=== PATIENT | male | born 1950 | race Caucasian/White ===

== ENCOUNTER 2018-05-17 08:37 | Inpatient (IN) | payer OTHER, MEDICARE, SELFPAY ==
[2018-05-10 14:00] VITALS: BMI 34.2
[2018-05-17] VITALS (16 sets, daily range): BP systolic 83–149; BP diastolic 32–79; PULSE 54–77; RESP 15–21; TEMP 35.9–37.1; O2SAT 94–100; BMI 33.5
--- NOTE | 2018-05-17 06:00 | DI.RAD.S_ITS ---
PROCEDURE: XR PELVIS 1-2V INDICATIONS: post op right hip TECHNIQUE: One view(s) of the pelvis acquired. COMPARISON: [facility] [place], [place], XR PELVIS WITH LATERAL HIP RIGHT, 05/11/2018, 15:46. FINDINGS: Bones: No fractures or dislocations. No suspicious bony lesions. Expected postoperative alignment of right hip arthroplasty. Hardware appears intact. Mild left hip degeneration. Soft tissues: Overlying soft tissue postoperative changes. IMPRESSION: Expected postoperative alignment right hip arthroplasty. Dictated by: Clement Lehman M.D. on 05/17/2018 at 14:49 Approved by: Clement Lehman M.D. on 05/17/2018 at 14:50
[2018-05-17] MEDS: CELECOXIB 200 MG CAPSULE PO (09:08)
[2018-05-17] MEDS: ACETAMINOPHEN 325 MG TABLET 975 MG PO (09:08)
[2018-05-17] MEDS: LACTATED RINGERS 1,000 ML 42 ML IV ×3 (09:09→13:52)
--- NOTE | 2018-05-17 09:33 | SUR.PREOP ---
patient's home meds given to his with his permission.
--- NOTE | 2018-05-17 10:10 | PM.PREOP ---
Pre-operative Note Interval Note History & Physical reviewed/Exam performed by Physician: Yes Changes to H&P: No
[2018-05-17] MEDS: CEFAZOLIN 2 GM/100 ML FROZ.PIGGY IV ×2 (10:57→19:42)
[2018-05-17] MEDS: BUPIVACAINE 0.25% W/ EPI 50 ML VIAL INJ (11:31)
--- NOTE | 2018-05-17 11:35 | SUR.OPER ---
Lateral on padded OR bed. Gel axillary roll. Arms secured on padded armboard with pillow supporting top arm. Padded hip positioner braces x4 - anterior and posterior chest and pelvis. Additional gel pad used anterior pelvis. Gel pad under bottom leg from knee to foot and secured with tape over sheet.
[2018-05-17] MEDS: TRANEXAMIC ACID 1,000 MG VIAL 1000 MG INJ (12:12)
--- NOTE | 2018-05-17 12:32 | PM.OP.1 ---
Operative Date/Time/Diagnoses Date of procedure: 05/17/18 Time of procedure: 12:33 Pre-op diagnosis: Right hip degenerative joint disease Post-op diagnosis: same Procedure & Clinicians Procedure: Right total hip arthroplasty (CPT code 17470 with fast food sales assistant) Same procedure as scheduled: Yes Indications: Patient is an 68-year-old male with severe right hip DJD. The patient has pain with activities and at rest, limited ambulation and activity tolerance, difficulties with ADLs, and failure of conservative treatment. We have discussed the nature of condition, treatment options, risks and benefits, and patient elects to proceed with total hip arthroplasty and gives informed consent. Surgeon: Nilson Espinoza Supervisor Properties: Kevin Rooney Anesthesia Type: Spinal Operative Notes Closure Type: primary Specimen(s): none sent Prosthetic devices, grafts, tissues, transplants, or devices: Acetabulum: Ellison and Nephew R3 acetabular component size 54 mm Femoral component: Ellison and Nephew Anthology stem size 7 with standard offset Femoral head: 36 mm + 4 Oxinium Estimated Blood Loss (mL): 100 Blood products transfused: none Procedure in detail: After satisfaction induction of anesthetic, and administration of IV antibiotics, the patient was positioned in the lateral decubitus position with all bony prominences well padded and pelvic position secured using a hip .net programmer positioning device. Right hip and lower extremity prepped and draped in the usual sterile fashion, 1st dose of intravenous tranexamic acid was administered, then a longitudinal incision was created centered over the greater trochanter and carried sharply through the skin and subcutaneous tissues down to the fascia lucian which was divided longitudinally and retracted with a Charnley retractor. External rotators visualize, cut, tagged, and retracted posteriorly, then the capsule was cut in a T-type fashion with the corners tagged and retracted. Hip was dislocated and femoral neck cut made according to preoperative templating. Acetabular retractors then placed, and the acetabular labrum and osteophytes were excised. The acetabulum was then sequentially reamed to 53 mm with an excellent circumferential ream and fit with the trial. The trial component was removed and a permanent size 54 mm Ellison and Nephew R3 acetabular component was selected, positioned, and impacted with satisfactory position and fixation achieved. Permanent liner was then inserted with the elevated lip directed posteriorly. Soft tissue then removed off the lateral femoral neck in the lateral neck was entered using a box osteotome. T-handled reamers placed down the canal followed by sequential broaching to 7 with the final broach left in place for trial reduction which demonstrated excellent leg length, range of motion, and stability characteristics with a 36 mm +4 trial ball. The trial and broach were removed, and a permanent size 7 Ellison and Nephew Anthology stem was selected and inserted with excellent position and fixation achieved. Another trial reduction yielded the above characteristics so the trial ball was exchanged for a permanent 36 mm + 4 Oxinium ball. The hip was irrigated and reduced and excellent leg length range of motion and stability characteristics were achieved and maintained. Periarticular tissues were infiltrated with Marcaine. The hip was copiously irrigated, and the capsule repaired with #2 Ethibond, and the piriformis was repaired back to the greater trochanter with the same. Fascia lucian closed with interrupted #1 Ethibond sutures, and the subcutaneous tissues were closed in 2 layers of 0 Vicryl and 2 0 Vicryl. Skin was closed with dale and sterile dressings applied. Second dose of tranexamic acid was administered intravenously, and the anesthetic was terminated. Complications: none Condition: stable Disposition: PACU Plan for aftercare: Patient will be admitted to the acute care allison, and anticipate discharge on postop day 1 to 2 with follow-up in office in 10-14 days. Outpatient physical therapy will be arranged and patient will continue to observe posterior hip precautions. Patient will continue use of postoperative Lovenox for 10 days postop.
--- NOTE | 2018-05-17 12:36 | P.OP_ITS ---
Operative Date/Time/Diagnoses Date of procedure: 05/17/18 Time of procedure: 12:33 Pre-op diagnosis: Right hip degenerative joint disease Post-op diagnosis: same Procedure & Clinicians Procedure: Right total hip arthroplasty (CPT code 37519 with assistant public defender) Same procedure as scheduled: Yes Indications: Patient is an 68-year-old male with severe right hip DJD. The patient has pain with activities and at rest, limited ambulation and activity tolerance, difficulties with ADLs, and failure of conservative treatment. We have discussed the nature of condition, treatment options, risks and benefits, and patient elects to proceed with total hip arthroplasty and gives informed consent. Surgeon: Nilson Espinoza Cleat Feeder: Kevin Rooney Anesthesia Type: Spinal Operative Notes Closure Type: primary Specimen(s): none sent Prosthetic devices, grafts, tissues, transplants, or devices: Acetabulum: Ellison and Nephew R3 acetabular component size 54 mm Femoral component: Ellison and Nephew Anthology stem size 7 with standard offset Femoral head: 36 mm + 4 Oxinium Estimated Blood Loss (mL): 100 Blood products transfused: none Procedure in detail: After satisfaction induction of anesthetic, and administration of IV antibiotics, the patient was positioned in the lateral decubitus position with all bony prominences well padded and pelvic position secured using a hip graduate teaching assistant positioning device. Right hip and lower extremity prepped and draped in the usual sterile fashion, 1st dose of intravenous tranexamic acid was administered, then a longitudinal incision was created centered over the greater trochanter and carried sharply through the skin and subcutaneous tissues down to the fascia lucian which was divided longitudinally and retracted with a Charnley retractor. External rotators visualize, cut, tagged, and retracted posteriorly, then the capsule was cut in a T-type fashion with the corners tagged and retracted. Hip was dislocated and femoral neck cut made according to preoperative templating. Acetabular retractors then placed, and the acetabular labrum and osteophytes were excised. The acetabulum was then sequentially reamed to 53 mm with an excellent circumferential ream and fit with the trial. The trial component was removed and a permanent size 54 mm Ellison and Nephew R3 acetabular component was selected, positioned, and impacted with satisfactory position and fixation achieved. Permanent liner was then inserted with the elevated lip directed posteriorly. Soft tissue then removed off the lateral femoral neck in the lateral neck was entered using a box osteotome. T- handled reamers placed down the canal followed by sequential broaching to 7 with the final broach left in place for trial reduction which demonstrated excellent leg length, range of motion, and stability characteristics with a 36 mm +4 trial ball. The trial and broach were removed, and a permanent size 7 Ellison and Nephew Anthology stem was selected and inserted with excellent position and fixation achieved. Another trial reduction yielded the above characteristics so the trial ball was exchanged for a permanent 36 mm + 4 Oxinium ball. The hip was irrigated and reduced and excellent leg length range of motion and stability characteristics were achieved and maintained. Periarticular tissues were infiltrated with Marcaine. The hip was copiously irrigated, and the capsule repaired with #2 Ethibond, and the piriformis was repaired back to the greater trochanter with the same. Fascia lucian closed with interrupted #1 Ethibond sutures, and the subcutaneous tissues were closed in 2 layers of 0 Vicryl and 2 0 Vicryl. Skin was closed with dale and sterile dressings applied. Second dose of tranexamic acid was administered intravenously, and the anesthetic was terminated. Complications: none Condition: stable Disposition: PACU Plan for aftercare: Patient will be admitted to the acute care allison, and anticipate discharge on postop day 1 to 2 with follow-up in office in 10-14 days. Outpatient physical therapy will be arranged and patient will continue to observe posterior hip precautions. Patient will continue use of postoperative Lovenox for 10 days postop.
--- NOTE | 2018-05-17 13:04 | SUR.PHASEI ---
Arouses easily to voice, denies pain/nausea; declined PO intake, states that he is warm enough, asking appropriate questions; resp even and regular, skin warm and dry.
--- NOTE | 2018-05-17 13:12 | SUR.PHASEI ---
Only discomfort is a sore throat; ice chips given. Awake, drowsy, oriented.
--- NOTE | 2018-05-17 13:30 | SUR.PHASEI ---
1319 to room 230. present in room. Bed down and locked, call light within reach. Alert and oriented, feeing ice chips to himself. VSS; resp even and regular, skin warm and dry. Dressing remains CDI; SCDs on. Clothing bag given to at her request. No questions from patient, , or staff. NOTE: Pillow was between legs upon arrival from the OR and throughout the PACU stay.
--- NOTE | 2018-05-17 13:49 | PC.NURSE ---
Pt arrived from PACU, VSS, dressing CDI. No pain , no nausea. Oriented to room. at bedside.
[2018-05-17] MEDS: LACTATED RINGERS 1,000 ML 125 ML IV ×2 (14:00→23:43)
[2018-05-17] MEDS: HYDROCODONE/ACET 5/325 TABLET 1 TAB PO (16:34)
--- NOTE | 2018-05-17 17:12 | PT.IPTN ---
Current Diagnoses Unilateral primary osteoarthritis, right hip (05/17/18) Trochanteric bursitis, right hip (05/17/18) Surgery Performed Operation Date: 05/17/18 10:15 Actual Procedures p Total Hip Arthroplasty(Right) - Nilson Espinoza MD Physical Therapy Treatment Note M3 PT-IP Subjective Start: 05/17/18 17:10 Freq: NEEDED Status: Active Protocol: Document 05/17/18 16:10 (Rec: 05/17/18 17:12 [email or web address]) Subjective Physical Therapy Visit Type Type Patient Unavailable Notes Per RN, Pt has not had any active movements from R knee and ankle yet. Pt education on hip precautions is given, Reattempt PT again tomorrow morning Physical Therapy Visit Comments Patient Comments Pt stated I couldnt feel my right leg yet.
--- NOTE | 2018-05-17 18:45 | PC.NURSE ---
Addendum entered by Katy Dickey R.N. 05/17/18 22:49: 2100- pt walked to bathroom with 1PA and FWW. did very well. able to feel all parts of legs. able to lift leg. needs assistance with getting leg back in bed. has had ice off the majority of the shift. did put it back on around 10 pm. will continue to monitor. Original Note: 1500- assumed care of pt from outgoing shift at 1500 this day. pt asleep at this time. arouses to voice. in and out, ran to get coffee. bed alarm on. will continue to monitor 1600- pt awake. in room. compliant with nursing staff and assessments. numbness to right knee and below. able to wiggle toes on right side. unable to lift leg at this time. unable to wiggle leg at this time. Pt asked for pain med. given pr APR. Pt denies nausea. will continue to monitor.
[2018-05-17] MEDS: HYDROMORPHONE 2 MG TABLET PO ×2 (20:33→23:41)
[2018-05-18] MEDS: CEFAZOLIN 2 GM/100 ML FROZ.PIGGY IV (03:00)
[2018-05-18] MEDS: HYDROMORPHONE 2 MG TABLET PO ×3 (03:00→08:59)
[2018-05-18 03:05] VITALS: PULSE 70; RESP 18; TEMP 37.1; O2SAT 96
[2018-05-18 05:53] LABS: Hematocrit 30.4 % (41-53); Hemoglobin 10.4 g/dL (13.5-17.5)
--- NOTE | 2018-05-18 06:15 | PC.NURSE ---
Pt is doing very well. He said he did the PT exercises after they left. His pain is well controlled, rating at the most 4 out of 10, however hes very persistent about taking the PO Dilaudid q3h and not trying a different medication or trying to space it out more. Walks to bathroom well with a SBA and FWW. at bedside, overly attentive, laying in a robe.
--- NOTE | 2018-05-18 07:38 | P.DS_ITS ---
History of Present Illness Date Patient Seen: 05/18/18 Time Patient Seen: 07:35 Chief complaint: [id number] Right Total Hip Arthroplasty Narrative: Hospital day 2, postop day 1 following right posterior total hip arthroplasty by Dr. Espinoza. Patient has remained stable postoperatively. He states he was up to 3 times during the night ambulating to the bathroom. This progressed with physical therapy. Pain controlled well. Patient is desiring to go home today. He has a [facility] patient. He has postoperative pain medication at home. He is scheduled to go to [facility] and [place]. Discharge Providers Date of admission: 05/17/18 08:37 Discharge Date: 05/18/18 Primary care physician: David Rodriguez MD Consults: 05/17/18 13:57 Consult to Discharge Planning Routine Comment: Consult to Physical Therapy Evaluate & Treat Comment: Physician Instructions: post op MARCELL protocol Consult to Respiratory Therapy Evaluate & Treat Comment: Physician Instructions: Evaluate and treat Discharge provider: Jani Rodríguez PA-C Summary Discharge Diagnosis: Status post right posterior total hip arthroplasty Hospital Course: Patient brought to hospital on 05/17/2018 for above-noted surgery. He remained stable postoperatively. Progressed well with PT. Ready for discharge home on postop day 1. Status at Discharge Cognitive/behavioral status at discharge: oriented Functional status at discharge: uses cane/walker Overall status at discharge: patient is progressing back to baseline Time Spent with Patient Less than 30 minutes Exam Vital Signs (past 8 hours): - 05/17/18 23:45 05/18/18 03:05 Temperature 98.8 F 98.7 F Pulse Rate 77 70 Respiratory Rate 16 18 Blood Pressure 149/79 H Pulse Oximetry 96 96 Oxygen Delivery Method Room Air Oxygen Flow Rate 0 Narrative Exam Narrative: Alert, oriented no acute distress resting in bed. Legs. Dressing to the right posterior hip is dry without drainage or inflammation. No calf pain or swelling. Pulses symmetrical. Patient able to lift his right leg. Objective Labs Result Diagrams: 05/18/18 05:00 Labs: Laboratory Results - last 24 hr 05/18/18 05:00 Hgb 10.4 L Hct 30.4 L Discharge Plan Discharge Plan Patient Disposition: Home Discharge comment: Discharged home after cleared by PT. Patient is thus with palpation and has postoperative pain medication at home. Posterior Hip precautions times 6 weeks postop. He will be on Lovenox for 10 days postop. Discharge Med Rec/Prescriptions Prescriptions: New enoxaparin [Lovenox] 40 mg/0.4 mL Syringe 40 mg subcut DAILY Qty: 9 RF: 0 Continued simvastatin 20 mg Tablet 20 mg PO QAM RF: 0 ibuprofen [Advil] 200 mg Tablet 400 mg PO DAILY PRN (Reason: pain) RF: 0 lisinopril-hydrochlorothiazide 20-25 mg Tablet 1 tab PO DAILY RF: 0 meloxicam 15 mg Tablet 15 mg PO DAILY RF: 0 aspirin [Aspir-81] 81 mg Tablet,Delayed Release (Dr/Ec) 81 mg PO DAILY RF: 0 oxycodone 5 mg Capsule 5 mg PO Q4-6H PRN (Reason: pain) RF: 0 docusate sodium 100 mg Capsule 100 mg PO BID RF: 0 Follow up/Referrals: David Rodriguez MD [Primary Care Provider] - Provider Discharge Instructions Diet: Diet as Tolerated Activity: Ambulate as tolerated. Use walker as needed. Posterior total hip precautions x6 weeks postop. Cold/Heat Therapy: Cold pack to right hip area as needed. Skin/Wound/Dressing Care Report to your healthcare provider any signs of infection, such as:: chills, fever, night sweats, increased pain, unusual drainage and unusual redness Dressing: Keep CovRsite dressing in place until postop visit. Visit Report/Discharge Packet Instructions: DI for Hip Replacement Discharge Data Primary Care Provider: David Rodriguez V Attending Provider: Nilson Espinoza Admit Date/Time: 05/17/18 08:37 Quality VTE Deep Vein Thrombosis/Pulmonary Embolism Present on Admission: No
[2018-05-18 07:48] VITALS: BP 126/72; PULSE 70; RESP 16; TEMP 36.2; O2SAT 97
[2018-05-18] MEDS: ENOXAPARIN 40 MG/0.4 ML SYRINGE SUBCUT (08:59)
--- NOTE | 2018-05-18 09:51 | PT.IIE ---
Current Diagnoses Unilateral primary osteoarthritis, right hip (05/17/18) Trochanteric bursitis, right hip (05/17/18) Surgery Performed Operation Date: 05/17/18 10:15 Actual Procedures p Total Hip Arthroplasty(Right) - Nilson Espinoza MD Surgical History (Last Updated 05/10/18 @ 14:17 by Britney Giles, RN) History of vasectomy (Acute) Hx of umbilical hernia repair (Acute) Medical History (Last Updated 05/10/18 @ 14:19 by Britney Giles RN) BCC (basal cell carcinoma) (Acute) Chronic neck and back pain (Acute) Easy bruisability (Acute) Edema (Acute) HTN (hypertension) (Acute) Hearing impaired (Acute) Hyperlipidemia (Acute) Osteoarthritis (Acute) Pneumonia (Acute) Psoriasis (Acute) Shingles (Acute ~01/2018) Physical Therapy Inpatient Evaluation/Re-Eval M1 PT/OT-IP Prior Functional Status Start: 05/17/18 17:10 Freq: NEEDED Status: Active Protocol: Document 05/18/18 09:51 DLM (Rec: 05/18/18 10:09 DLM [email or web address]) Medical Review Prior Functional Status Medical History Reviewed Yes Diet/Fluid Consistency Regular Communication WNL Mobility and Gait Independent without device, community distances Activities of Daily Living and IADL's Independent Social History Household Members spouse Living Arrangements House Number of Floors (Floors) One Floor Number of Stairs To Enter/Railing? one step into home Home Environment Standard Height Toilet Tub/Shower Home Equipment Four Wheel Walker Quad Cane Raised Toilet Seat Without Armrests M2 PT-IP Current Condition Start: 05/17/18 17:10 Freq: NEEDED Status: Active Protocol: Document 05/18/18 09:51 DLM (Rec: 05/18/18 10:09 DLM [email or web address]) Physical Therapy Current Condition Current Condition Evaluation Date 05/18/18 Treatment Diagnosis right MARCELL, posterior approach, impaired gait Onset Date 05/17/18 Precautions Posterior Hip Precautions No Hip Flexion > 90 degrees No Hip Internal Rotation No Hip Adduction Weight Bearing Status Weight Bearing Status Weight Bear as Tolerated M3 PT-IP Subjective Start: 05/17/18 17:10 Freq: NEEDED Status: Active Protocol: Document 05/18/18 09:51 DLM (Rec: 05/18/18 10:09 DLM [email or web address]) Subjective Physical Therapy Visit Type Type Initial Evaluation Visit Start Time 08:50 Visit Stop Time 09:51 Total Visit Minutes 61 Number of OUTPATIENT CODER Visits 0 Physical Therapy Visit Comments Patient Comments He did not sleep well last night Patient Goals Discharge home tonight Therapy Pain Assessment Pain When Pain Assessed During Mobility Pain Present Pain Present Pain Reported Location Right Hip Intensity 3 Scale Used Numeric (1 - 10) Description Aching Pain Management Techniques Apply Cold Timing of Activity with Medications M4 PT-IP Mobility and Gait Start: 05/17/18 17:10 Freq: NEEDED Status: Active Protocol: Document 05/18/18 09:51 DLM (Rec: 05/18/18 10:09 DLM [email or web address]) PT-Bed Mobility Assessment Supine to Sit Supine to Sit Independent Sit to Supine Sit to Supine Independent Scooting Scooting to Edge of Bed Independent Scooting Up and Down in Bed Independent PT-Transfer Assessment Sit to and From Stand Sit to and from Stand Independent Use of Upper Extremities Equipment Transfer Assistive Device Gait Belt Front Wheeled Walker 4 Wheeled Walker Transfers Transfer Destination Chair Transfer Technique Stand Step Pivot Transfer Ability Level of Assist Standby Assistance Use of Upper Extremities Gait Assessment Gait Gait Assistance Required: Standby Assistance Distance (Feet) 120 Able to Maintain Weight Bearing Status Yes During Gait Assistive Devices Assistive Device Gait Belt Front Wheeled Walker 4 Wheeled Walker Gait Deviations General Gait Pattern Antalgic Factors Limiting Gait Function Factors Limiting Gait Function Decreased Activity Tolerance Decreased Strength Pain Stair Climbing Assessment Evaluation Level of Assist On Stairs Standby Assistance Devices Stair Climbing Assistive Devices Four Wheel Walker Technique/Endurance Stair Climbing Direction Ascend and Descend Stair Climbing Technique Step to Step Number of Steps Climbed 1 Query Text: Stair Climbing Set # Repetitions (reps) 1 Comments Stair Climbing Comments he needs cuing for sequencing PT-Balance Assessment Sitting Balance and Reactions Static Sitting Balance Ability Normal Dynamic Sitting Balance Ability Normal Standing Balance and Reactions Static Standing Balance Ability Good Dynamic Standing Balance Ability Good Device Used FWW M5 PT-IP Objective Assessments Start: 05/17/18 17:10 Freq: NEEDED Status: Active Protocol: Document 05/18/18 09:51 DLM (Rec: 05/18/18 10:09 DLM [email or web address]) Orientation Orientation/Cognition Level of Alertness Alert Orientation Name Age Birthday Month Date Year Day of Week Place Situation Language Function Ability No Deficits Noted Safety Awareness Understands Safety Issues Memory Description No Deficits Noted Gross Range of Motion Upper Extremity ROM Assessment Within Functional Limits Lower Extremity ROM Assessment Right Impaired Impairments post-op precautions for posterior MARCELL Strength Upper Extremity Strength Assessment Within Functional Limits Lower Extremity Strength Assessment Right Impaired Hip hip flexion 2+/5 Knee 4/5 Ankle 4+/5 Coordination Assessment Gross Coordination Gross Coordination WNL Sensation Assessment Sensation Gross Sensation WNL Muscle Tone Muscle Tone WNL Yes M6 PT-IP Treatment Start: 05/17/18 17:10 Freq: NEEDED Status: Active Protocol: Document 05/18/18 09:51 DLM (Rec: 05/18/18 10:09 DLM [email or web address]) Physical Therapy Treatment Exercises Exercises Ankle Pumps Gluteal Sets Quad Sets Heel Slides Supine Hip Abduction Education Education Provided Precautions Weight Bearing Status Post-Op Packet Safety Other Treatments Other Treatment Performed pt demonstrated safe use of his 4WW M7 PT-IP Assessment and Plan Start: 05/17/18 17:10 Freq: NEEDED Status: Active Protocol: Document 05/18/18 09:51 DLM (Rec: 05/18/18 10:09 DLM [email or web address]) PT Summary Assessment and Plan Potential Rehabilitation Potential Excellent Status of Condition at Evaluation Evolving Summary Impairments Pain ROM Strength Balance Transfers Gait Activity Tolerance Assessment Summary Ashutosh reports feeling ready to discharge home today. His is present for Physical Therapy session. He tolerated gait in the chan well. He has a 4WW for home use and is able to demonstrate safe use of it by increased use of breaks. Educated pt in advantages of FWW vs 4WW. Educated pt and his on home equipment issues and home safety. He is able to verbalize his hip precautions. He has out-pt PT set up after discharge. He appears safe to discharge home with his when medically stable. Goals Bed Mobility Goal Independent Transfer Goal Independent Front Wheeled Walker Four Wheeled Walker Gait Goal Independent Front Wheel Walker Four Wheel Walker Gait Distance 150 Other Goals Up and down one step with FWW/ 4WW independent Frequency of Treatment Frequency Of Treatment Twice a Day Treatment Plan Physical Therapy Treatment Plan Bed Mobility Training Transfer Training Gait Training Therapeutic Exercise Post Op Education Discharge Planning Recommendations To Nursing Amount of Assist Needed Standby Assistance Discharge Recommendations PT Discharge Recommendations Home with Assistance Outpatient PT
--- NOTE | 2018-05-18 11:14 | PC.NURSE ---
Removed post operative dressing from right hip. Applied 2 cover site dressings over the wound. Wound is approximated with dale. No redness or warmth noted around the incision site. MARQUITA Salcido.
--- NOTE | 2018-05-18 13:03 | CM.DANOTE ---
Discharge Planning/Care Management DCP: assessment: case received, EMR reviewed and spoke this morning with ortho KIA Rodríguez who noted he had written d/c order and pt would d/c home once cleared by PT. OUPT PT was all set up. Pt is a 68 year old male who admitted to care of Surgeon: Dr. Espinoza: for a planned R MARCELL. PT was ordered but had not yet worked with pt. Payer: [employer] and Medicare A only. Checked in again about 1230 and MARQUITA Chowdhury noted that pt had aleady left forl home. Noted that PT had worked with pt and his /caregiver training and he did d/c to home as per his [facility] plan with no d/c concerns noted by the care team members. CM Discharge Assessment Start: 05/18/18 13:03 Freq: Status: Discharge Protocol: Document 05/18/18 13:03 ITV (Rec: 05/18/18 13:03 ITV [id number]) Discharge Planning Assessment Advance Directives? No History Provided By Patient Family Member Medical Record Prior Living Arrangements House Household Members spouse Review Status In Process Next Review Type Continued Stay Review Pre-Anesthesia Assessment Start: 05/10/18 14:00 Freq: Status: Discharge Protocol: Document 05/10/18 14:00 CAB (Rec: 05/10/18 15:19 CAB [id number]) Pre-Anesthesia Assessment Patient Information Reviewed Via Phone Assessment Assessment Completed With Patient Primary Care Provider David Rodriguez Seen Specialist in Last 12 Months Yes Specialist Seen Orthopedist Primary Language Macedonian Senior Software Developer Required No Height 170.18 cm Weight 99.337 kg Body Mass Index (BMI) 34.2 Hearing Ability Hard of Hearing Use of Hearing Aid Visual Assist Glasses Dentition Type Teeth, Natural Present Teeth, Missing Barriers to Learning None Comment Left hearing aid Hx Anesthesia Reactions No Hx Family Anesthesia Reaction No Hx Malignant Hyperthermia No Hx Blood Transfusions No Anesthesia Review Requested No Quality Facilitator No alcohol intake current alcohol intake frequency 0-2 drinks per day Smoking Status Former smoker Tobacco type cigarettes how long ago did patient quit smoking Quit 10/2001 Substance Use Type does not use Pain Present Pain Reported Musculoskeletal Symptoms Abnormal Gait Back Pain Difficulty Walking Joint Pain Muscle Cramps Neck Pain Numbness Radiating Pain into Limb Tingling History of Falling (Recent or History of No ) Patient is completely paralyzed or No completely immobile Mental Status Oriented to own ability Is patient on oxygen? No Does patient have HUDSON/SOB No Hx Sleep Apnea No Currently Taking a Beta Levi No Can You Climb a Flight of Stairs Without Yes: Maybe SOB Hx Chest Pain No Hx SOB No Hx Syncope or Dizziness No Anti-Coagulant Therapy No Has a Line Palletizer No Cardiac Testing No Hx Pacemaker/ICD No Pacemaker Rep Required? No Cardiac Clearance Received Not Applicable Diet Type At Home Regular dysphagia No Urinary Catheter Present No Hx Urinary Self Catheterization No Diabetes No Hx Drug Resistant Organism No Presence of External or Internal Medical No Devices Have you traveled outside the [facility] in the last 30 days? Marital Status Lives With spouse Prior Living Arrangements House Number of Floors (Floors) One Floor Support System Child/Children Spouse Does the Patient Have Assistance After Yes Surgery Patient Discharge Plan Description Return Home Comment Pt advised overnight length of stay per surgeon's office Feels Safe in Current Environment Yes Been Physically Hurt or Threatened By a No Person in Current Environment Do you have thoughts of harming yourself None or others? Are you currently considering suicide? No Do you have a plan to hurt yourself or No Plan others? Do You Have Any Spiritual Beliefs That No May Affect Your HC Choices? Do You Have Any Cultural Practices That No May Affect Your HC Choices? Spiritual Referral None Comment Tenriism Who Can We Speak to About Patient's Care Family, friends Identifying Code for Release of Patient Declines to issue Information Health Care Proxy/Next of Kin Charmaine () Health Care Proxy Emergency Contact Name Charmaine () Emergency Contact Advance Directives? No: Declines further information PAC Instructions Durable medical equipment Medications to take/avoid Nasal antibiotic No ETOH/petroleum product on skin DOS NPO Post-op transportation Pre-surgical wash Sensory aids Sturdy shoes/comfortable clothes Do not bring valuables and remove jewelry Document 05/17/18 16:50 MARIAELENA (Rec: 05/17/18 17:05 MARIAELENA [id number])
== END 2018-05-18 11:44 | disposition home or self-care (01) | DRG 470 ==
PROVIDERS: Admitting Provider Orthopaedic Surgery; PCP Internal Medicine; Visit Provider Orthopaedic Surgery
PROC: 0SR90JZ Replacement of Right Hip Joint with Synthetic Substitute, Open Approach (ICD-10-PCS; CPT 27130; principal; 2018-05-17 10:15)
DX: M16.11 Unilateral primary osteoarthritis, right hip (principal); I10 Essential (primary) hypertension
CPT/HCPCS: 36415; 72170; 85014; 85018; 97110; 97116; 97162; C1776; J0690; J1100; J1650; J2250; J2405; J2704

== ENCOUNTER → 2021-12-05 08:44 | Outpatient (CLI) | payer MEDICARE, OTHER, SELFPAY ==
[2018-05-17 08:59] VITALS: BMI 33.5
[2021-12-05 10:32] LABS: Hematocrit 35.3 % (41-53); Mean Corpuscular HGB Conc 34.1 % (30-36); Mean Corpuscular Hemoglobin 30.7 PG (26-34); Platelet Count 204 X10^3/uL (150-400); Red Blood Cell Count 3.92 X10^6/uL (4.5-5.9); Red Cell Distribution Width 13.3 % (11.6-14.8); White Blood Cell Count 6.3 X10^3/uL (4.5-11.0)
[2021-12-05 10:43] LABS: Erythrocyte Sedimentation Rate 10 MM/HR (0-15)
[2021-12-05 11:06] LABS: Alanine Aminotransferase 41 IU/L (<50); Albumin 4.2 g/dL (3.5-5.0); Albumin Globulin Ratio 1.4 (1.0-2.8); Alkaline Phosphatase 57 U/L (38-126); Aspartate Aminotransferase 39 IU/L (17-59); Bilirubin Total 0.5 mg/dL (0.2-1.3); Blood Urea Nitrogen 24 mg/dL (9-20); C-Reactive Protein Quant 1.4 mg/dL (<1.0); Calcium 9.6 mg/dL (8.4-10.2); Carbon Dioxide 26 mmol/L (22-32); Chloride 101 mmol/L (98-107); Cholesterol 192 mg/dL (140-199); Estimated Glomerular Filt Rate > 60 mL/min (>60); Globulin 2.9 g/dL (1.7-4.1); Glucose 97 mg/dL (80-110); HDL Cholesterol 39 mg/dL (40-60); HEMOLYSIS < 15 (0-50); LDL Cholesterol Calculated 116 mg/dL (<100); Potassium 4.2 mmol/L (3.4-5.1); Sodium 138 mmol/L (137-145); Total Protein 7.1 g/dL (6.3-8.2); Triglycerides 184 mg/dL (35-150)
[2021-12-05 11:27] LABS: Prostate Specific Antigen 1.06 ng/mL (0.10-4.00)
[2021-12-05 11:28] LABS: TSH w/ Reflex to FT4 3.48 uIU/mL (0.47-4.68)
== END ==
PROVIDERS: PCP Internal Medicine; Referring Provider Internal Medicine; Visit Provider Internal Medicine
DX: E78.2 Mixed hyperlipidemia (principal); N40.0 Benign prostatic hyperplasia without lower urinary tract symptoms; I10 Essential (primary) hypertension; I25.10 Atherosclerotic heart disease of native coronary artery without angina pectoris
CPT/HCPCS: 36415; 80053; 80061; 84153; 84443; 85027; 85651; 86140

== ENCOUNTER → 2022-05-30 12:13 | Outpatient (CLI) | payer MEDICARE, OTHER, SELFPAY ==
[2018-05-17 08:59] VITALS: BMI 33.5
[2022-05-30 13:24] LABS: Aspartate Aminotransferase 42 IU/L (17-59); BUN Creatinine Ratio 23.9 (6-22); Blood Urea Nitrogen 28 mg/dL (9-20); Calcium 9.6 mg/dL (8.4-10.2); Carbon Dioxide 28 mmol/L (22-32); Chloride 104 mmol/L (98-107); Cholesterol 186 mg/dL (140-199); Estimated Glomerular Filt Rate > 60 mL/min (>60); Glucose 91 mg/dL (80-110); HDL Cholesterol 46 mg/dL (40-60); HEMOLYSIS < 15 (0-50); LDL Cholesterol Calculated 114 mg/dL (<100); Potassium 4.3 mmol/L (3.4-5.1); Sodium 138 mmol/L (137-145); Triglycerides 131 mg/dL (35-150)
== END ==
PROVIDERS: PCP Internal Medicine; Referring Provider Internal Medicine; Visit Provider Internal Medicine
DX: E78.2 Mixed hyperlipidemia (principal); I10 Essential (primary) hypertension; I25.10 Atherosclerotic heart disease of native coronary artery without angina pectoris
CPT/HCPCS: 36415; 80048; 80061; 84450

== ENCOUNTER → 2023-07-13 16:37 | Outpatient (CLI) | payer MEDICARE, OTHER, SELFPAY ==
[2023-05-15 13:04] VITALS: BMI 33.5
[2023-07-13 17:27] LABS: Hematocrit 37.1 % (41-53); Hemoglobin 12.5 g/dL (13.5-17.5); Mean Corpuscular HGB Conc 33.7 % (30-36); Mean Corpuscular Hemoglobin 30.9 PG (26-34); Mean Corpuscular Volume 91.9 fL (80-100); Platelet Count 209 X10^3/uL (150-400); Red Blood Cell Count 4.04 X10^6/uL (4.5-5.9); Red Cell Distribution Width 13.7 % (11.6-14.8); White Blood Cell Count 7.3 X10^3/uL (4.5-11.0)
[2023-07-13 17:41] LABS: Aspartate Aminotransferase 47 IU/L (17-59); BUN Creatinine Ratio 19.7 (6-22); Blood Urea Nitrogen 28 mg/dL (9-20); Calcium 9.9 mg/dL (8.4-10.2); Carbon Dioxide 30 mmol/L (22-32); Chloride 105 mmol/L (98-107); Cholesterol 151 mg/dL (140-199); Estimated Glomerular Filt Rate 52 mL/min (>60); Glucose 83 mg/dL (80-110); HDL Cholesterol 62 mg/dL (40-60); HEMOLYSIS < 15 (0-50); LDL Cholesterol Calculated 71 mg/dL (<100); Potassium 4.3 mmol/L (3.4-5.1); Sodium 140 mmol/L (137-145); Triglycerides 89 mg/dL (35-150)
[2023-07-13 18:10] LABS: Prostate Specific Antigen 1.18 ng/mL (0.10-4.00)
[2023-07-13 18:11] LABS: TSH w/ Reflex to FT4 2.89 uIU/mL (0.47-4.68)
[2023-07-13 18:29] LABS: Vitamin B12 710 pg/mL (239-931)
== END ==
PROVIDERS: PCP Internal Medicine; Referring Provider Internal Medicine; Visit Provider Internal Medicine
DX: I10 Essential (primary) hypertension (principal); E78.2 Mixed hyperlipidemia; N40.1 Benign prostatic hyperplasia with lower urinary tract symptoms; N13.8 Other obstructive and reflux uropathy; E53.8 Deficiency of other specified B group vitamins
CPT/HCPCS: 36415; 80048; 80061; 82607; 84153; 84443; 84450; 85027

== ENCOUNTER → 2023-07-28 13:06 | Outpatient (CLI) | payer MEDICARE, OTHER, SELFPAY ==
[2023-05-15 13:04] VITALS: BMI 33.5
[2023-07-28 13:41] LABS: BUN Creatinine Ratio 20.4 (6-22); Blood Urea Nitrogen 22 mg/dL (9-20); Calcium 9.3 mg/dL (8.4-10.2); Carbon Dioxide 30 mmol/L (22-32); Chloride 102 mmol/L (98-107); Estimated Glomerular Filt Rate > 60 mL/min (>60); Glucose 93 mg/dL (80-110); HEMOLYSIS < 15 (0-50); Potassium 4.6 mmol/L (3.4-5.1); Sodium 136 mmol/L (137-145)
[2023-07-29 08:10] LABS: Fecal Immunochemical Test Negative (Negative)
== END ==
PROVIDERS: PCP Internal Medicine; Referring Provider Internal Medicine; Visit Provider Internal Medicine
DX: N28.9 Disorder of kidney and ureter, unspecified (principal); Z80.0 Family history of malignant neoplasm of digestive organs
CPT/HCPCS: 36415; 80048; 82274